=== PATIENT | male | born 1950 | race Two or more races ===

== ENCOUNTER 2019-10-23 08:55 | Outpatient (CLI) | payer OTHER | END 2019-10-23 09:23 | disposition home or self-care (01) | LOC: NUCLEAR 08:55 | DX: R97.20 Elevated prostate specific antigen [PSA] (principal) | CPT/HCPCS: 78803; A9503 ==

== ENCOUNTER 2022-10-11 08:35 | Emergency (ER) | payer OTHER ==
[~2022-10-11] VITALS: Ht 177.8 cm; Wt 77.1 kg
[2022-10-11] MEDS ORDERED: CLOTRIMAZOLE-BE15 G1 (09:36)
[2022-10-11] MEDS ORDERED: EZETIMIBE10 MG PO (09:37)
[2022-10-11] MEDS ORDERED: FLUCONAZOLE150 MG PO (09:49)
== END 2022-10-11 10:18 | disposition home or self-care (01) ==
LOC: ER 08:35
DX: B35.6 Tinea cruris (principal); Z88.0 Allergy status to penicillin; E11.9 Type 2 diabetes mellitus without complications